=== PATIENT | female | born 1935 | race Caucasian/White ===

== ENCOUNTER → 2017-04-19 | Outpatient (CLI) | payer OTHER, BC | END | disposition home or self-care (01) | LOC: C.MAMM 11:12 | PROVIDERS: ATTEND Nurse Practitioner Family | DX: M81.0 Age-related osteoporosis without current pathological fracture (principal); M85.851 Other specified disorders of bone density and structure, right thigh; M85.852 Other specified disorders of bone density and structure, left thigh ==

== ENCOUNTER → 2018-04-02 | Outpatient (CLI) | payer OTHER, BC ==
--- NOTE | 2018-04-02 12:31 | DIAGNOSTIC IMAGING REPORT ---
SI JOINTS 3 OR MORE VIEWS CLINICAL HISTORY: LOW BACK PAIN pain COMPARISON STUDY: No previous studies for comparison. 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 Sclerosis of the margins of the articular services. No evidence of bony ankylosis. Severe degenerative changes low lumbar spine. IMPRESSION: 1. 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 2. No evidence of bony ankylosis. 3. Severe degenerative changes low lumbar spine. The above report was generated using voice recognition software. It may contain grammatical, syntax or spelling errors. Electronically signed by: Josh Card M.D. 04/02/2018 12:30 PM Dictated Date/Time: 04/02/2018 12:29 PM
== END | disposition home or self-care (01) ==
LOC: C.RAD1850 12:08
PROVIDERS: ATTEND Nurse Practitioner Family
DX: M47.897 Other spondylosis, lumbosacral region (principal); M53.3 Sacrococcygeal disorders, not elsewhere classified